=== PATIENT | male | born 1940 | race Caucasian/White ===

== ENCOUNTER 2017-02-07 19:10 | Emergency (ER) | payer MEDICARE, OTHER ==
[~2017-02-07] VITALS: Ht 160 cm; Wt 89.0 kg
[~2017-02-07 19:10] MED LIST: ASPI-664 PO; HYDR25TA6 PO; LOSA50TA6 PO; METF500T3 PO; NIFE30TA8 PO; OMEP20CA16 PO; TAMS0.4C2 PO; ZOLP10TA5 PO
[2017-02-07 19:15] VITALS: Ht 160 cm; Wt 89.0 kg
[2017-02-07] MEDS ORDERED: CEPASTAT LOZENGE MT ONE (20:00)
[2017-02-07] MEDS ORDERED: SODI126M NASAL (20:42)
[2017-02-07] MEDS ORDERED: GUAI473L22 PO (20:42)
--- NOTE | 2017-02-07 21:12 | ERD ---
ER Documentation Chief Complaint Chief Complaint bib self, cc: cough x 2 days HPI 76-year-old male complaining of cough 2-3 days. Cough is nonproductive, worse at night. Patient has history of diabetes, hypertension, hypercholesterol, acid reflux, and BPH. He is taking nifedipine, losartan, Lopressor, hydrochlorothiazide, and Flomax. Denies history of asthma. Denies fever or chills. Denies shortness of breath. Denies abdominal pain, vomiting, diarrhea. Denies chest pain or palpitations. ROS All systems reviewed and are negative except as per history of present illness. Medications Home Meds Active Scripts Sodium Chloride (Saline Nasal Mist) 126 Ml Mist, 2 SPRAY NASAL Q2H Y for NASAL CONGESTION, #1 BOTTLE Prov:DANNY FITZGERALD. GARMENT SEWER HAND 02/07/17 Guaifenesin-Codeine Phosphate* (Guaifenesin* AC Cough Syrup) 473 Ml Liquid, 10 ML PO Q4H Y for COUGH, #120 ML Prov:ADNNY FITZGERALD. GARMENT SEWER HAND 02/07/17 Reported Medications Tamsulosin Hcl* (Tamsulosin Hcl*) 0.4 Mg Cap.er.24h, 0.4 MG PO QHS, #90 06/27/15 Losartan Potassium* (Losartan Potassium*) 50 Mg Tablet, 50 MG PO DAILY, #30 06/27/15 Omeprazole* (Omeprazole*) 20 Mg Capsule.dr, 20 MG PO AC BREAKFAST, #90 06/27/15 Nifedipine (Nifedical XL*) 30 Mg/Bottle Tab.osm.24, 30 MG PO DAILY, #90 06/27/15 Zolpidem Tartrate* (Zolpidem Tartrate*) 10 Mg Tablet, 10 MG PO QHS, #30 06/27/15 Metformin Hcl* (Metformin Hcl* ER) 500 Mg Tab.sr.24h, 500 MG PO DAILY, #30 TAB 16 Hydrochlorothiazide* (Hydrochlorothiazide*) 25 Mg Tab, 25 MG PO DAILY, #30 TAB 06/27/15 Aspirin* (Aspirin* (EC)) 81 Mg Tablet.dr, 81 MG PO DAILY, TAB 06/27/15 Allergies Allergies: Coded Allergies: No Known Drug Allergy (Verified Allergy, Mild, 02/18/15) PMhx/Soc History of Surgery: Yes (RT KIDNEY, HERNIA) Anesthesia Reaction: No Hx Neurological Disorder: No Hx Respiratory Disorders: No Hx Cardiac Disorders: Yes (HTN) Hx Psychiatric Problems: Yes (ANXIETY) Hx Miscellaneous Medical Probl: Yes (DM, BPH, HIGH CHOLESTEROL) Hx Alcohol Use: No Hx Substance Use: No Hx Tobacco Use: No Smoking Status: Never smoker Physical Exam Vitals Vital Signs Date Time Temp Pulse Resp B/P Pulse Ox O2 Delivery O2 Flow Rate FiO2 02/07/17 19:15 98.5 72 16 126/81 100 Physical Exam General: Well-developed, well-nourished, conscious and coherent, in no distress Skin: Warm and dry without rash, good texture and turgor Head: Normocephalic without evidence of trauma Eyes: Sclera and conjunctivae normal; pupils equal, round, and reactive to light; extraocular movements are intact Ears: Canals are patent. Tympanic membranes are clear Nose/Face: Erythematous and swollen with clear rhinorrhea Mouth/throat: Mucous membranes are moist. Posterior pharynx clear without erythema or exudates Neck: Supple without meningismus or adenopathy. Carotids are equal. Trachea midline. No bruits or JVD Chest: Normal AP diameter. Good expansion without retractions. Nontender. Lungs are clear to auscultate bilaterally with good tidal volume Heart: Regular rate and rhythm. No murmur, rub, or gallops heard Extremities: Full range of motion. Good strength bilaterally. No clubbing, cyanosis, or edema. Peripheral pulses are intact. Sensation intact Neuro: Alert and oriented 4, GCS 15. Cranial nerves grossly intact. Motor and sensory exams nonfocal. Moves all extremities. Speech clear. Gait normal Results 24 hrs Current Medications Medications (Trade) Dose Ordered Sig/Fish Route PRN Reason Start Time Stop Time Status Last Admin Dose Admin Phenol (Cepastat Lozenge) 1 lozenge ONCE ONCE MT 02/07/17 20:00 02/07/17 20:01 DC 02/07/17 20:15 Procedures/MDM Well-appearing 76-year-old male present ED with nonproductive cough 2 days. Because the patient's age, I ordered a chest x-ray to rule out pneumonia. However, patient refused. Patient is afebrile, in no respiratory distress. Lungs are clear to auscultate. I doubt that patient has pneumonia or bronchitis. Likely patient's symptoms are result of viral upper respiratory infection. Patient appears well, stable for discharge and outpatient management. Medical decision making shared with patient and family. Education provided to patient and family. Patient and family expressed understanding of the plan. Medications on discharge: Cough and this was codeine, saline nasal spray. Follow-up: Primary care provider in 2-3 days or return to ED if worse. Disclaimer: Inadvertent spelling and grammatical errors are likely due to EHR/ dictation software use and do not reflect on the overall quality of patient care. Also, please note that the electronic time recorded on this note does not necessarily reflect the actual time of the patient encounter. Departure Diagnosis: Primary Impression: Viral URI with cough Condition: Stable Patient Instructions: Adult Self-Care for Colds Referrals: [facility] YOU HAVE RECEIVED A MEDICAL SCREENING EXAM AND THE RESULTS INDICATE THAT YOU DO NOT HAVE A CONDITION THAT REQUIRES URGENT TREATMENT IN THE EMERGENCY DEPARTMENT. FURTHER EVALUATION AND TREATMENT OF YOUR CONDITION CAN WAIT UNTIL YOU ARE SEEN IN YOUR DOCTORS OFFICE WITHIN THE NEXT 1-2 DAYS. IT IS YOUR RESPONSIBILITY TO MAKE AN APPOINTMENT FOR FOLOW-UP CARE. IF YOU HAVE A PRIMARY DOCTOR --you should call your primary doctor and schedule an appointment IF YOU DO NOT HAVE A PRIMARY DOCTOR YOU CAN CALL OUR PHYSICIAN REFERRAL HOTLINE AT IF YOU CAN NOT AFFORD TO SEE A PHYSICIAN YOU CAN CHOSE FROM THE FOLLOWING [facility] [address] [facility] [address] [facility] [facility] [address] [facility] [facility] [address] [facility]. [facility] [address] [facility] [facility]. [address] Additional Instructions: Call your primary care doctor TOMORROW for an appointment during the next 2-3 days.See the doctor sooner or return here if your condition worsens before your appointment time. DANNY FITZGERALD NP Feb 07, 2017 21:12
== END 2017-02-07 20:52 | disposition home or self-care (01) ==
LOC: FTE 19:10
DX: J06.9 Acute upper respiratory infection, unspecified (principal); I10 Essential (primary) hypertension; E11.9 Type 2 diabetes mellitus without complications; Z79.82 Long term (current) use of aspirin; Z79.84 Long term (current) use of oral hypoglycemic drugs
CPT/HCPCS: 99283

== ENCOUNTER 2017-04-15 07:06 | Day surgery (SDC) | END 2017-04-15 11:39 | disposition home or self-care (01) ==

== ENCOUNTER 2018-05-30 23:27 | Emergency (ER) | payer MEDICARE, OTHER ==
[~2018-05-30] VITALS: Ht 154.9 cm; Wt 74.5 kg
[~2018-05-30 23:27] MED LIST changes: +ASPI-1046 PO; -ASPI-664 PO; +LOSA50TA14 PO; -LOSA50TA6 PO; +METO-448 PO; +RANI150T35 PO; -ZOLP10TA5 PO
[2018-05-30 23:30] VITALS: Ht 154.9 cm; Wt 74.5 kg
--- NOTE | 2018-05-31 02:54 | ERD ---
ER Documentation Chief Complaint Chief Complaint RIGHT SIDED CHEST PAIN X 1.5 HOURS HPI This is a 78-year-old male with mid sternal chest pain that started 1.5 hours ago while he was watching television and writing. The pain is since resolved. Denies fevers chills nausea vomiting. Pain was mild in nature, patient has history of hypertension and wants to make sure he was not having a "heart attack". No history of coronary artery disease. No family history of coronary artery disease. Currently only medical history is hypertension that he is taking medications for. Currently pain-free. ROS All systems reviewed and are negative except as per history of present illness. Medications Home Meds Reported Medications Tamsulosin Hcl* (Tamsulosin Hcl*) 0.4 Mg Cap.er.24h, 0.4 MG PO HS, CAP 04/15/17 Metoprolol Tartrate* (Lopressor*) 25 Mg Tab, 75 MG PO BID, #180 TAB 04/15/17 Ranitidine Hcl* (Zantac*) 150 Mg Tablet, 150 MG PO HS, #30 TAB 04/15/17 Losartan Potassium* (Losartan Potassium*) 50 Mg Tablet, 50 MG PO DAILY, #30 06/27/15 Omeprazole* (Omeprazole*) 20 Mg Capsule.dr, 20 MG PO AC BREAKFAST, #90 06/27/15 Nifedipine (Nifedical XL*) 30 Mg/Bottle Tab.osm.24, 30 MG PO DAILY, #90 06/27/15 Metformin Hcl* (Metformin Hcl* ER) 500 Mg Tab.sr.24h, 500 MG PO DAILY, #30 TAB 06/27/15 Hydrochlorothiazide* (Hydrochlorothiazide*) 25 Mg Tab, 25 MG PO DAILY, #30 TAB 06/27/15 Aspirin* (Aspirin* (EC)) 81 Mg Tablet.dr, 81 MG PO DAILY, TAB 06/27/15 Allergies Allergies: Coded Allergies: No Known Drug Allergy (Verified Allergy, Mild, 04/15/17) PMhx/Soc History of Surgery: Yes (R HERNIA REPAIR X2, R KIDENEY 3 CM TUMOR REMOVED) Anesthesia Reaction: No Hx Neurological Disorder: No Hx Respiratory Disorders: No Hx Cardiac Disorders: Yes (HIGH CHOL, HTN) Hx Psychiatric Problems: No Hx Miscellaneous Medical Probl: No Hx Alcohol Use: No Hx Substance Use: No Hx Tobacco Use: No Smoking Status: Unknown if ever smoked Physical Exam Vitals Vital Signs Date Temp Pulse Resp B/P (MAP) Pulse Ox O2 O2 Flow FiO2 Time Delivery Rate 05/31/18 97.5 54 16 147/93 100 Room Air 01:25 (111) 05/30/18 97.6 55 15 159/75 98 23:30 (103) Physical Exam Const: No acute distress Head: Atraumatic Eyes: Normal Conjunctiva ENT: Normal External Ears, Nose and Mouth. Neck: Full range of motion. No meningismus. Resp: Clear to auscultation bilaterally Cardio: Regular rate and rhythm, no murmurs Abd: Soft, non tender, non distended. Normal bowel sounds Skin: No petechiae or rashes Back: No midline or flank tenderness Ext: No cyanosis, or edema Neur: Awake and alert Psych: Normal Mood and Affect Result Diagram: 05/31/1813205/31/18132 Results 24 hrs Laboratory Tests Test 05/31/18 01:33 White Blood Count 9.6 10^3/ul Red Blood Count 5.30 10^6/ul Hemoglobin 14.6 g/dl Hematocrit 45.2 % Mean Corpuscular Volume 85.3 fl Mean Corpuscular Hemoglobin 27.5 pg Mean Corpuscular Hemoglobin Concent 32.3 g/dl Red Cell Distribution Width 12.9 % Platelet Count 203 10^3/UL Mean Platelet Volume 10.1 fl Immature Granulocytes % 0.600 % Neutrophils % 61.0 % Lymphocytes % 29.8 % Monocytes % 7.3 % Eosinophils % 0.9 % Basophils % 0.4 % Nucleated Red Blood Cells % 0.0 /100WBC Immature Granulocytes # 0.060 10^3/ul Neutrophils # 5.9 10^3/ul Lymphocytes # 2.9 10^3/ul Monocytes # 0.7 10^3/ul Eosinophils # 0.1 10^3/ul Basophils # 0.0 10^3/ul Nucleated Red Blood Cells # 0.0 10^3/ul Sodium Level 135 mmol/L Potassium Level 4.4 mmol/L Chloride Level 95 mmol/L Carbon Dioxide Level 27 mmol/L Anion Gap 13 Blood Urea Nitrogen 32 mg/dl Creatinine 1.18 mg/dl Est Glomerular Filtrat Rate mL/min mL/min Glucose Level 125 mg/dl Calcium Level 9.9 mg/dl Total Bilirubin 0.6 mg/dl Direct Bilirubin 0.00 mg/dl Indirect Bilirubin 0.6 mg/dl Aspartate Amino Transf (AST/SGOT) 26 IU/L Alanine Aminotransferase (ALT/SGPT) 23 IU/L Alkaline Phosphatase 98 IU/L Troponin I < 0.012 ng/ml B-Type Natriuretic Peptide 222 PG/ML Total Protein 7.5 g/dl Albumin 4.4 g/dl Globulin 3.10 g/dl Albumin/Globulin Ratio 1.41 Procedures/MDM Emergency department course: Patient seen and evaluated by triage nurse. Placed in bed from evaluation. Placed on continuous telemetry monitor with continuous pulse oximetry. Had intravenous access. Had blood work done. A stat EKG and a stat chest x-ray. Serial exams are stable. Remained chest free throughout his ER stay. Diagnostic data: EKG: Rate/Rhythm: [Normal Sinus Rhythm] QRS, ST, T-waves: [No changes consistent w/ acute ischemia] Impression: [No evidence of ischemia or arrhythmia] Chest X-ray 1V Interpreted by me: Soft Tissue: No acute abnormalities Bones: No acute abnormalities Mediastinum/Cardiac Silhouette/Lungs: [No acute abnormalities] Medical decision making: Patient's thoracic symptoms have stabilized while in the department and are stable for outpatient follow up. Exam and work up not consistent w/ ischemia, arrhythmia, PE or dissection. Departure Diagnosis: Primary Impression: Chest pain of uncertain etiology Condition: Stable DORON FLORES May 31, 2018 02:54
[2018-05-31 03:35] VITALS: BP 125/80; PULSE 52; RESP 16
== END 2018-05-31 03:30 | disposition home or self-care (01) ==
LOC: E/R 23:27
DX: R07.89 Other chest pain (principal); I10 Essential (primary) hypertension; E11.9 Type 2 diabetes mellitus without complications; Z79.84 Long term (current) use of oral hypoglycemic drugs; Z79.82 Long term (current) use of aspirin
CPT/HCPCS: 36415; 71045; 80053; 83880; 84484; 85025; 93005

== ENCOUNTER 2018-12-06 12:13 | Emergency (ER) | payer MEDICARE, OTHER ==
[~2018-12-06] VITALS: Ht 152.4 cm; Wt 74.4 kg
[~2018-12-06 12:13] MED LIST changes: +ACET500C5 PO; -OMEP20CA16 PO; +OMEP20CA17 PO; +RANI-535 PO; -RANI150T35 PO
[2018-12-06 12:16] VITALS: PULSE 63; RESP 20; Ht 152.4 cm; Wt 74.4 kg
[2018-12-06] MEDS ORDERED: ACETAMINOPHEN 500 MG TAB PO STA (13:23)
[2018-12-06 13:51] VITALS: BP 158/84
== END 2018-12-06 13:54 | disposition home or self-care (01) ==
LOC: FTE 12:13
DX: R07.89 Other chest pain (principal); I10 Essential (primary) hypertension; E11.9 Type 2 diabetes mellitus without complications; Z79.82 Long term (current) use of aspirin; Z79.84 Long term (current) use of oral hypoglycemic drugs; Z85.528 Personal history of other malignant neoplasm of kidney
CPT/HCPCS: 71100